=== PATIENT | male | born 1985 | race Two or more races ===

== ENCOUNTER 2018-12-04 18:13 | Inpatient (IN) | payer OTHER ==
[2018-12-04] MEDS ORDERED: LORazepam 2 MG/ML INJ IVP ONE (18:53)
[2018-12-04] MEDS ORDERED: NS 1,000 ML IV ONE (18:53)
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
[2018-12-04] MEDS ORDERED: IOPAMIDOL (ISOVUE-300) 100 ML BTL ONE (19:13)
[2018-12-04 19:21] LABS: PLATELET COUNT 466 10^3/uL (150-400)
[2018-12-04] MEDS ORDERED: VANCOMYCIN HCL/NORMAL SALINE 250 ML IV ONE (19:59)
[2018-12-04] MEDS ORDERED: HYDROmorphONE/DILAUDID 1 MG/ML INJ IVP ONE (20:55)
[2018-12-04] MEDS ORDERED: HYDROmorphONE/DILAUDID 1 MG/ML INJ ONE (20:55)
[2018-12-04 21:16] LABS: INR 1.14 (0.83-1.16); PROTIME(PATIENT) 14.1 SEC (12.0-15.0)
[2018-12-04] MEDS ORDERED: ONDANSETRON 4 MG/2 ML VIAL IVP PRN (21:19)
[2018-12-04] MEDS ORDERED: ACETAMINOPHEN 650 MG SUPP PR PRN (21:19)
[2018-12-04] MEDS ORDERED: PROMETHAZINE HCL 25 MG/ML INJ IVP PRN (21:19)
[2018-12-04] MEDS ORDERED: ACETAMINOPHEN 325 MG TAB PO PRN (21:19)
[2018-12-04] MEDS ORDERED: ONDANSETRON DISINTEGRATING 4 MG TAB PO PRN (21:19)
[2018-12-04] MEDS ORDERED: LORazepam 2 MG/ML INJ IVP PRN ×2 (21:19→21:53)
[2018-12-04] MEDS ORDERED: NICOTINE 21 MG/24 HR PATCH TD PRN (21:53)
[2018-12-04] MEDS ORDERED: FLUMAZENIL 0.5 MG/5 ML MDV IVP PRN (21:53)
[2018-12-04] MEDS ORDERED: chlordiazePOXIDE 25 MG CAP PO PRN (21:54)
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
[2018-12-04] MEDS: oxyCODONE IR 5 MG TAB PO PRN (22:54)
[2018-12-04] MEDS: chlordiazePOXIDE 25 MG CAP PO SCH (22:54)
[2018-12-05] MEDS: NS 1,000 ML IV SCH ×2 (00:17→11:38)
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
[2018-12-05] MEDS: VANCOMYCIN 1.25 GM in NS 250 ML IV SCH ×3 (04:52→18:30)
[2018-12-05 04:53] LABS: PLATELET COUNT 343 10^3/uL (150-400)
[2018-12-05] MEDS: chlordiazePOXIDE 25 MG CAP PO SCH ×3 (09:07→21:18)
[2018-12-05] MEDS: THIAMINE HCL 500 MG in NS 100 ML IV SCH (09:36)
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
--- NOTE | 2018-12-05 14:09 | ASMTCMCOM ---
CM Note CM Note Notes: 12/05/2018 Case Management Note Discussed pt during rounds this morning. Pt admitted for neck abcess. Contacted [facility] to screen for Medicaid. Pt is uninsured and unemployed. Lives with family members. Met w/pt. Completed CAGE. Pt consumes large quantites of alcohol on a daily basis stating he drinks himself to "black outs" every day. Pt starts each day with 1 pint of vodka upon waking. He meets with 3 friends and they consume "1 gallon plus 1 liter of vodka between us". Pt estimated consuming 1 liter of vodka per day in addtion to morning 1 pint. Pt returns home for dinner and continues to consume alcohol until he falls asleep. Provided resources for intensive outpatient, one on one counseling, group therapy, AA, [facility], [facility] counseling and [facility]. Referred pt to [facility] for follow at discharge. Provided brochure for [facility] and [facility] for patient to chose Primary Care Provider. Case Management d/c poc: to be determined. Case Management to follow. Date Signed: 12/05/2018 02:09 PM Electronically Signed By:Lizzette Melgoza RN
--- NOTE | 2018-12-05 14:11 | ASMTCAGE ---
CAGE Do you feel you ought to Answers: Yes cut down on your drinking or drug use? Do people annoy you by Answers: No criticizing your drinking or drug use? Do you feel guilty about Answers: No your drinking or drug use? 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 Additional Comments 1 pint + 1 L of vodka per day. "I drink to blackouts every day" Date Signed: 12/05/2018 02:10 PM Electronically Signed By:Lizzette Melgoza RN
[2018-12-05] MEDS: VODKA 50 ML BOTTLE PO SCH ×3 (14:27→23:17)
[2018-12-05] MEDS: oxyCODONE IR 5 MG TAB PO PRN ×3 (17:12→21:19)
--- NOTE | 2018-12-05 19:26 | SOAPPROG ---
SOAP Progress Note Assessment/Plan: Assessment: Right neck abscess. Improving. Moderate drainage from Neil drain site. Plan: Continue ABX. Follow CXs and adjust ABX appropriately. Dressing changes PRN. Will continue to follow. 12/05/18 19:23 Subjective: Improving per patients. Decreased pain. Objective: Vital Signs Temp Pulse Resp BP Pulse Ox 37.2 C 75 18 154/104 H 95 12/05/18 16:09 12/05/18 16:09 12/05/18 16:09 12/05/18 16:09 12/05/18 16:09 Microbiology 12/04/18 21:40 Gram Stain - Final Neck - Swab Laboratory Results 12/05/18 04:00 12/05/18 04:00 12/04/18 12/05/18 12/06/18 05:59 05:59 05:59 Intake Total 1270 550 Balance 1270 550 PT 14.1 SEC (12.0-15.0) 12/04/18 20:40 INR 1.14 (0.83-1.16) 12/04/18 20:40 Physical Exam - Physical Exam General Appearance: WD/WN, alert, no apparent distress EENT: PERRL/EOMI, pharynx normal Neck: No normal inspection (Right neck incision with neil in place. Min erythema. Mild purulent drainage.) Respiratory: No respiratory distress Skin: normal color, warm/dry Neuro/Psych: alert, normal mood/affect ICD10 Worksheet Patient Problems: Problems Problem Status Onset Abscess, neck Acute
[2018-12-06] MEDS: VANCOMYCIN 1.25 GM in NS 250 ML IV SCH ×2 (06:09→17:56)
[2018-12-06] MEDS: THIAMINE HCL 500 MG in NS 100 ML IV SCH (08:08)
[2018-12-06] MEDS: chlordiazePOXIDE 25 MG CAP PO SCH ×3 (08:09→21:55)
[2018-12-06] MEDS: VODKA 50 ML BOTTLE PO SCH ×4 (08:09→23:16)
--- NOTE | 2018-12-06 16:52 | HOSPPROG ---
Hospitalist Progress Note Assessment/Plan: 33-year-old gentleman with past medical history significant for alcohol abuse, homelessness admitted for a neck abscess. Abscess, neck- s/p I&D with drain placement. continue Vancomycin. blood and wound cultures pending. ENT following. -wound culture reviewed showing GPC in chains will likely returned item clerk to be strep but will await final results. -ENT following. Alcohol withdrawal - CIWA protocol. also intiated scheduled librium. Patient with large volume daily etoh consumption and history of withdrawls. no intention for cessation at this time. vodka 50 ml tid started. Tobacco dependence - nicotine patch prn. FEN - IVF over night. advance diet as tolerated. electrolyte monitoring and replacement prn. PPx - SCDs. holding anticoagulation pending ENT re-assessment tomorrow. overal low VTE risk so will encourage mobilization. COR _ FULL. Dispo - patient admitted to observation status on med/surg floor pending ENT re- assessment and recs. Subjective: neck feeling better. struggling to not drink, but trying not to. otherwise no complaints Objective: Vital Signs Temp Pulse Resp BP Pulse Ox 37.1 C 88 16 132/77 H 96 12/06/18 16:00 12/06/18 16:00 12/06/18 16:00 12/06/18 16:00 12/06/18 16:00 Microbiology 12/04/18 21:40 Gram Stain - Final Neck - Swab Laboratory Results 12/05/18 04:00 12/05/18 04:00 12/05/18 12/06/18 12/07/18 05:59 05:59 05:59 Intake Total 1270 1000 Balance 1270 1000 PT 14.1 SEC (12.0-15.0) 12/04/18 20:40 INR 1.14 (0.83-1.16) 12/04/18 20:40 - Physical Exam Constitutional: no apparent distress, appears nourished, not in pain Eyes: PERRL, anicteric sclera, EOMI Ears, Nose, Mouth, Throat: moist mucous membranes, hearing normal, ears appear normal, no oral mucosal ulcers, other (right neck bandaged. bandage is CDI. ) Cardiovascular: regular rate and rhythym, no murmur, rub, or gallop Respiratory: no respiratory distress, no rales or rhonchi, clear to auscultation Gastrointestinal: normoactive bowel sounds, soft, non-tender abdomen, no palpable masses Genitourinary: no bladder fullness, no bladder tenderness, no renal bruits Skin: no rashes or abrasions, no fluctuance, no induration Musculoskeletal: full muscle strength, no muscle tenderness, normal joint ROM Neurologic: AAOx3, sensation intact bilaterally Psychiatric: interacting appropriately, not anxious, not encephalopathic, thought process linear Lymph, Heme, Immunologic: no cervical LAD, no supraclavicular LAD ICD10 Worksheet Patient Problems: Problems Problem Status Onset Abscess, neck Acute
--- NOTE | 2018-12-06 17:08 | SOAPPROG ---
SOAP Progress Note Assessment/Plan: Assessment: Right neck abscess s/p 02/03 I&D with [place]. No drainage today. Continued induration expected. Improving. Rolan drain out. Plan: Continue ABX. Recommend following CXs and adjusting ABX appropriately, PO if possible. Dressing changes BID. Bacitracin BID. OK for discharge once on appropriate PO ABX from ENT standpoint. Follow up ENT as needed. Please call/reconsult if condition worsens. 12/06/18 17:11 Subjective: Pain improved. No complaints. Objective: Vital Signs Temp Pulse Resp BP Pulse Ox 37.1 C 88 16 132/77 H 96 12/06/18 16:00 12/06/18 16:00 12/06/18 16:00 12/06/18 16:00 12/06/18 16:00 Microbiology 12/04/18 21:40 Gram Stain - Final Neck - Swab Laboratory Results 12/05/18 04:00 12/05/18 04:00 12/05/18 12/06/18 12/07/18 05:59 05:59 05:59 Intake Total 1270 1000 Balance 1270 1000 PT 14.1 SEC (12.0-15.0) 12/04/18 20:40 INR 1.14 (0.83-1.16) 12/04/18 20:40 Physical Exam - Physical Exam General Appearance: WD/WN, alert, no apparent distress EENT: PERRL/EOMI, pharynx normal Neck: No normal inspection (R Neck induration. [place] removed. No fluid/ purulence expressed on palpation.) Respiratory: No respiratory distress Skin: normal color, warm/dry Neuro/Psych: alert, normal mood/affect ICD10 Worksheet Patient Problems: Problems Problem Status Onset Abscess, neck Acute
[2018-12-06] MEDS: NS 1,000 ML IV SCH (18:00)
[2018-12-06] MEDS: BACITRACIN OINTMENT 1 PACKET TP SCH (21:55)
[2018-12-07 05:30] LABS: PLATELET COUNT 386 10^3/uL (150-400)
[2018-12-07] MEDS: VANCOMYCIN 1.25 GM in NS 250 ML IV SCH (06:23)
[2018-12-07] MEDS: VODKA 50 ML BOTTLE PO SCH ×4 (06:24→23:02)
[2018-12-07] MEDS: chlordiazePOXIDE 25 MG CAP PO SCH ×3 (09:17→21:32)
[2018-12-07] MEDS: THIAMINE HCL 500 MG in NS 100 ML IV SCH (09:17)
[2018-12-07] MEDS: BACITRACIN OINTMENT 1 PACKET TP SCH ×2 (09:18→21:32)
[2018-12-07] MEDS ORDERED: CARBAMIDE PEROXIDE 15 ML OTIC.BTL LEFTEAR SCH (10:15)
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
--- NOTE | 2018-12-07 17:52 | HOSPPROG ---
Hospitalist Progress Note Assessment/Plan: 33-year-old gentleman with past medical history significant for alcohol abuse, homelessness admitted for a neck abscess. Abscess, neck- s/p I&D with drain placement. continue Vancomycin. blood and wound cultures pending. ENT following. -wound culture reviewed showing GAS, -ID consulted who recommended 2 weeks amoxicillin 500 TID -ENT cleared to discharge Alcohol withdrawal - CIWA protocol. also intiated scheduled librium. Patient with large volume daily etoh consumption and history of withdrawls. no intention for cessation at this time. vodka 50 ml tid started. Tobacco dependence - nicotine patch prn. FEN - IVF over night. advance diet as tolerated. electrolyte monitoring and replacement prn. PPx - SCDs. holding anticoagulation pending ENT re-assessment tomorrow. overal low VTE risk so will encourage mobilization. COR _ FULL. Dispo - patient admitted to observation status on med/surg floor pending ENT re- assessment and recs. 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, swelling unchange.d Objective: Vital Signs Temp Pulse Resp BP Pulse Ox 36.7 C 77 16 116/71 95 12/07/18 14:58 12/07/18 14:58 12/07/18 14:58 12/07/18 14:58 12/07/18 14:58 Microbiology 12/04/18 21:40 Gram Stain - Final Neck - Swab Wound Culture - Final Streptococcus Pyogenes Grp A Laboratory Results 12/07/18 05:22 12/05/18 04:00 12/06/18 12/07/18 12/08/18 05:59 05:59 05:59 Intake Total 1000 1800 950 Balance 1000 1800 950 PT 14.1 SEC (12.0-15.0) 12/04/18 20:40 INR 1.14 (0.83-1.16) 12/04/18 20:40 - Physical Exam Constitutional: no apparent distress, appears nourished, not in pain, other ( right neck induration unchanged. drain out, erythema improved. ) Eyes: PERRL, anicteric sclera, EOMI Ears, Nose, Mouth, Throat: moist mucous membranes, hearing normal, ears appear normal, no oral mucosal ulcers Cardiovascular: regular rate and rhythym, no murmur, rub, or gallop Respiratory: no respiratory distress, no rales or rhonchi, clear to auscultation Gastrointestinal: normoactive bowel sounds, soft, non-tender abdomen, no palpable masses Genitourinary: no bladder fullness, no bladder tenderness, no renal bruits Skin: no rashes or abrasions, no fluctuance, no induration Musculoskeletal: full muscle strength, no muscle tenderness, normal joint ROM Neurologic: AAOx3, sensation intact bilaterally Psychiatric: interacting appropriately, not anxious, not encephalopathic, thought process linear Lymph, Heme, Immunologic: no cervical LAD, no supraclavicular LAD ICD10 Worksheet Patient Problems: Problems Problem Status Onset Abscess, neck Acute
[2018-12-07] MEDS ORDERED: CEPHALEXIN 500 MG CAP PO SCH (18:00)
[2018-12-08] MEDS: VODKA 50 ML BOTTLE PO SCH (06:19)
[2018-12-08 07:49] VITALS: BP 132/84
--- NOTE | 2018-12-08 08:27 | PDIAF ---
- Diagnosis Code Status: Full Code - Medication Management Discharge Medications: electronically signed and located in the Home Medication List. - Follow Up Care Current Providers and Referrals: NONE *PRIMARY CARE P,. [Primary Care Provider] - As per Instructions Jonny Graves MD [Medical Doctor] - follow up in 1 week
[2018-12-08] MEDS: chlordiazePOXIDE 25 MG CAP PO SCH (08:41)
[2018-12-08] MEDS: BACITRACIN OINTMENT 1 PACKET TP SCH (08:44)
[2018-12-08] MEDS ORDERED: THIAMINE HCL 100 MG TAB PO SCH (09:00)
--- NOTE | 2018-12-08 09:11 | PCMIDPN ---
Assessment/Plan: Assessment: 33-year-old man with right-sided neck deep soft tissue infection with abscess that has been drained. Review induration remains quite extensive but the overall edema at the site has decreased just in the past 24 hr. We will continue with amoxicillin 3 times daily to complete a total of 14 days of antibiotics. He has agreed to come see this infectious disease physician least sign-off the books in the lobby evaluation to ensure that the lesion heals. 1. Right neck deep soft tissue infection with abscess, improved 2. Status post bedside I&D of right neck abscess 12/06/2018 3. Alcohol dependence 4. Immunocompromised patient due to alcohol abuse Plan: 1. Continue amoxicillin 500 mg p.o. 3 times daily; stop date 12/18/2018 2. Reviewed in detail potential side effects of beta-lactam antibiotics to include: allergy, rash, nausea, antibiotic-associated diarrhea, Clostridioides difficile colitis. 3. Will call patient with results of HIV testing and hepatitis virus serologic testing 4. Eleven follow-up briefly in clinic to ensure resolution of the lesion at approximately 1 week of therapy Jonny Graves MD Infectious Diseases 12/08/18 09:12 Subjective: No fever or chills in the past 24-hours. Tolerating oral diet with solids and liquids. No diarrhea, nausea, or other GI symptoms. No rash. Appetite normal. Ambulating without difficulty. Continued, but improved pain with lateral neck rotation at the right neck abscess drainage site. Objective: Vital Signs Temp Pulse Resp BP Pulse Ox 37.0 C 71 14 132/84 H 95 12/08/18 07:48 12/08/18 07:48 12/08/18 07:48 12/08/18 07:48 12/08/18 07:48 Microbiology 12/04/18 21:40 Gram Stain - Final Neck - Swab Wound Culture - Final Streptococcus Pyogenes Grp A Laboratory Results 12/07/18 05:22 12/05/18 04:00 12/07/18 12/08/18 12/09/18 05:59 05:59 05:59 Intake Total 1800 1800 Balance 1800 1800 Microbiology 12/04/18 21:40 Neck - Swab Gram Stain - Final 12/04/18 21:40 Neck - Swab Wound Culture - Final Streptococcus Pyogenes Grp A 12/04/18 20:40 Blood Blood Culture - Preliminary 03/20/19 20:35 Blood Blood Culture - Preliminary Laboratory Tests 12/04/18 12/04/18 12/05/18 19:07 19:07 04:00 WBC 11.72 H Hgb 14.9 Plt Count 466 H Creatinine 0.9 0.8 Hepatitis A Ab Total Hep Bs Antibody Hep Bs Antibody, Quant Hep B Core Total Ab Hepatitis C Antibody HIV (1&2) Ag & Ab Refer 12/07/18 12/07/18 12/07/18 05:22 17:33 17:33 WBC 6.49 Hgb 14.3 Plt Count 386 Creatinine Hepatitis A Ab Total Pending Hep Bs Antibody Pending Hep Bs Antibody, Quant Pending Hep B Core Total Ab Pending Hepatitis C Antibody Pending HIV (1&2) Ag & Ab Refer Pending - Physical Exam General Appearance: no apparent distress, non-toxic EENT: No scleral icterus Respiratory: No respiratory distress, No accessory muscle use Neck: supple (Diminished range of motion due to pain in the right neck abscess site) Skin: other (Right side of neck with decreased edema with large area of induration remaining; overall the area is improved over the past 24 hr) Neuro/Psych: alert, normal mood/affect, oriented x 3, No confused ICD10 Worksheet Patient Problems: Problems Problem Status Onset Abscess, neck Acute
--- NOTE | 2018-12-08 10:38 | ASDISCHSUM ---
Discharge Information Plan Status:Home with No Needs Medically Cleared to Leave:12/08/2018 Discharge Date:12/08/2018 CM D/C Disposition:Home, Routine, Self-Care ADT D/C Disposition:Home, Routine, Self-Care Projected Discharge Date:12/08/2018 Transportation at D/C:Family Discharge Delay Reason: Follow-Up Date:12/08/2018 Discharge Slot: Final Diagnosis:neck abscess Placement Information Patient Contact Information Contact Name:ANGELI Relationship:Sister Address:[facility] [address] Work Phone: City:[facility] Phone: State/Zip Code:[place] [address] Email: Financial Information Financial Class:Self-Pay Primary Plan Desc:SP UNINSURED Primary Plan Number:[id number] Secondary Plan Desc: Secondary Plan Number: Assessment Information LACE LACE Length of stay for Answers: 4-6 days current admission Acuity / Level of Answers: Yes Care: Did the patient have an inpatient admission? # of Emergency department Answers: 1-2 visits in the last 6 months Social determinants Answers: History of substance abuse (ETOH, street drugs, prescription drugs, etc.) Homelessness (street, prison) Score: 14 Date Signed: 12/08/2018 10:38 AM Electronically Signed By:Shereen Tejeda [facility] CM Progress Note CM Note CM Note Notes: 12/05/2018 Case Management Note Discussed pt during rounds this morning. Pt admitted for neck abcess. Contacted [employer] to screen for Medicaid. Pt is uninsured and unemployed. Lives with family members. Met w/pt. Completed CAGE. Pt consumes large quantites of alcohol on a daily basis stating he drinks himself to "black outs" every day. Pt starts each day with 1 pint of vodka upon waking. He meets with 3 friends and they consume "1 gallon plus 1 liter of vodka between us". Pt estimated consuming 1 liter of vodka per day in addtion to morning 1 pint. Pt returns home for dinner and continues to consume alcohol until he falls asleep. Provided resources for intensive outpatient, one on one counseling, group therapy, AA, [facility], [facility] and [facility]. Referred pt to [facility] for follow at discharge. Provided brochure for [facility] PCPs and [facility]'s clinic for patient to chose Primary Care Provider. Case Management d/c poc: to be determined. Case Management to follow. Date Signed: 12/05/2018 02:09 PM Electronically Signed By:Lizzette Melgoza RN CAGE Questionnaire CAGE Do you feel you ought to Answers: Yes cut down on your drinking or drug use? Do people annoy you by Answers: No criticizing your drinking or drug use? Do you feel guilty about Answers: No your drinking or drug use? Do you drink or use drugs Answers: Yes first thing in the morning ([employer])? Additional Comments 1 pint + 1 L of vodka per day. "I drink to blackouts every day" Date Signed: 12/05/2018 02:10 PM Electronically Signed By:Lizzette Melgoza RN Case Management Discharge Plan Note Case Management Discharge Discharge Order Complete? Answers: Yes Patient to Obtain Answers: via Family Medications Transportation Arranged Answers: Family/Friends Transport will Pick (Date 12/08/2018 12:00 AM & Time) Family Notified Answers: Yes Notes: by pt Discharge Comments Notes: Spoke with pt in the room with hospitalist. Pt states he lives with his father, and his mother will pick him up and help him get medications. Pt stated Yolanda from [employer] had spoken with him and given him instructions on how to finish enrolling in medicaid. He understands he will need to bring a copy of his green card back to hospital to complete enrollment. Pt states conviction that he will fill prescription from Amoxicillin at [facility] with help from mother. No further CM needs noted at this time. Date Signed: 12/08/2018 10:37 AM Electronically Signed By:Shereen Tejeda Intervention Information
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
[2018-12-09 08:59] LABS: HEPATITIS A ANTIBODY TOTAL POSITIVE (NEGATIVE); HEPATITIS B CORE AB TOTAL NEGATIVE (NEGATIVE); HEPATITIS C ANTIBODY TOTAL NEGATIVE (NEGATIVE)
[2018-12-09 10:07] LABS: HEPATITIS A ANTIBODY IGM (BCH) NEGATIVE (NEGATIVE)
== END 2018-12-08 11:17 | disposition home or self-care (01) | DRG 580 ==
LOC: MERGE 20:21 → OBSVTOIN 20:21 → F2W 22:03 → F3E 12-05 16:00
PROVIDERS: ADMIT Student in an Organized Health Care Education/Training Program; ATTEND Internal Medicine
PROC: 0J940ZZ Drainage of Right Neck Subcutaneous Tissue and Fascia, Open Approach (ICD-10-PCS; principal; 2018-12-05)
DX: L03.221 Cellulitis of neck (principal); F10.239 Alcohol dependence with withdrawal, unspecified; E51.9 Thiamine deficiency, unspecified; B95.5 Unspecified streptococcus as the cause of diseases classified elsewhere; T20.07XA Burn of unspecified degree of neck, initial encounter; X77.8XXA Intentional self-harm by other hot objects, initial encounter; E66.9 Obesity, unspecified; F17.210 Nicotine dependence, cigarettes, uncomplicated; Z59.0 Homelessness; Z68.34 Body mass index [BMI] 34.0-34.9, adult; Y92.9 Unspecified place or not applicable; Y93.89 Activity, other specified
CPT/HCPCS: 82435-PO; 82565-PO; 82947-PO; 84132-PO; 84295-PO; 84520-PO; 85014-ER; 86704-90; 86708-90; 86709-90; 96374; G0472; J1170; J2060; J3370; J3411; Q9967